=== PATIENT | male | born 1960 | race Caucasian/White ===

== ENCOUNTER 2017-07-06 19:32 | Emergency (ER) | payer OTHER ==
[~2017-07-06] VITALS: Ht 175.3 cm; Wt 95.0 kg
[2017-07-06 19:45] VITALS: BP 130/70; PULSE 70; RESP 14; TEMP 98.3; O2SAT 94
[2017-07-06] MEDS ORDERED: ONDANSETRON HCL 4 MG/2 ML VIAL IV PUSH ONE (20:15)
[2017-07-06] MEDS ORDERED: MORPHINE SULFATE 4 MG/ML INJ IV PUSH ONE ×2 (20:15→22:15)
[2017-07-06] MEDS ORDERED: SODIUM CHLORID 0.9% 500 ML INJ 500 ML IV ONE (20:15)
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
[2017-07-06] MEDS ORDERED: LIDOCAINE HCL 1% 50 ML VIAL INFIL ONE (21:00)
[2017-07-06] MEDS ORDERED: TETANUS/DIPHTHERIA TOXOID PEDIATRIC 0.5 ML VIAL IM ONE (21:00)
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
--- NOTE | 2017-07-06 21:48 | PD ---
Physical Exam Date Seen by Provider: Jul 06, 2017 Time Seen by Provider: 21:47 Narrative 57-year-old male that presents to the ED for evaluation of laceration. Please refer to my attendings note. I was asked to repair laceration. Data Data Last Documented VS Vital Signs Date Time Temp Pulse Resp B/P (MAP) Pulse Ox O2 Delivery O2 Flow Rate FiO2 07/06/17 19:45 98.3 70 14 130/70 (90) 94 Room Air Orders Orders Pelvis, Ap Only (Routine) (07/06/17 ) Chest, Single Ap (07/06/17 ) Shoulder, Limited(2vws) (07/06/17 ) Forearm (2vws) (07/06/17 ) Foot, Limited (2vws) (07/06/17 ) Morphine Inj (Morphine Inj) (07/06/17 20:15) Ondansetron Inj (Zofran Inj) (07/06/17 20:15) Sodium Chlorid 0.9% 500 Ml Inj (Ns 500 M (07/06/17 20:15) Wound Care (07/06/17 20:47) Tetanus-Diphther Tox Peds Inj (Tetanus-D (07/06/17 21:00) Lidocaine 1% Inj (50 Ml) (Xylocaine 1% I (07/06/17 21:00) MDM Medical Record Reviewed: Yes Supervised Visit with AMALIA: No Procedures Procedure Narrative LACERATION LOCATION: left forearm LENGTH: 2 cm NUMBER OF STITCHES/EMIL: 5 sutures REPAIR: The area of the laceration was prepped with Betadine and sterilely draped. The laceration was infiltrated with 1% Xylocaine. The wound was copiously irrigated and explored without evidence of foreign body, tendon injury or neurovascular injury. The wound was closed using 4-0 Prolene. This was a 1 layer repair. A sterile dressing was applied. The patient was advised to keep the dressing clean and dry. Patient tolerated the procedure well. Condition: Stable Troy Membreno Jul 06, 2017 21:48
[2017-07-06] MEDS ORDERED: IBUP-232 PO (21:58)
[2017-07-06] MEDS ORDERED: NORC5TAB PO (21:58)
[2017-07-06] MEDS ORDERED: CEPH-460 PO (21:58)
== END 2017-07-06 22:58 | disposition home or self-care (01) ==
LOC: NEPE 19:32
DX: S92.332A Displaced fracture of third metatarsal bone, left foot, initial encounter for closed fracture (principal); S92.342A Displaced fracture of fourth metatarsal bone, left foot, initial encounter for closed fracture; S92.512A Displaced fracture of proximal phalanx of left lesser toe(s), initial encounter for closed fracture; S51.812A Laceration without foreign body of left forearm, initial encounter; S90.412A Abrasion, left great toe, initial encounter; M25.551 Pain in right hip; V23.4XXA Motorcycle driver injured in collision with car, pick-up truck or van in traffic accident, initial encounter
CPT/HCPCS: 12001; 29515; 71010; 72170; 73030; 73090; 73620; 96361; 96374; 96375; 96376; 99284; E0113; J2270; J2405; J7040